=== PATIENT | female | born 1990 | race Caucasian/White ===

== ENCOUNTER 2024-05-18 12:40 | Emergency (ER) | payer OTHER ==
[~2024-05-18] VITALS: Ht 165.1 cm; Wt 67.1 kg
[2024-05-18] MEDS ORDERED: CITALOPRAM20 MG PO (12:58)
[2024-05-18] MEDS ORDERED: GOOD SENSE ASPI81 M1 PO (12:59)
[2024-05-18] MEDS ORDERED: Tdap Vaccine 0.5 ML SYR (Adult Vaccine) IM ONE (14:55)
== END 2024-05-18 16:07 | disposition short-term general hospital (02) ==
LOC: ED 12:40
DX: S01.81XA Laceration without foreign body of other part of head, initial encounter (principal); S09.8XXA Other specified injuries of head, initial encounter; J45.909 Unspecified asthma, uncomplicated; Y08.89XA Assault by other specified means, initial encounter; Y93.89 Activity, other specified; Y92.89 Other specified places as the place of occurrence of the external cause; Y99.8 Other external cause status

== ENCOUNTER 2025-08-04 13:42 | Emergency (ER) | payer OTHER ==
[~2025-08-04] VITALS: Wt 68.0 kg
[~2025-08-04 13:42] MED LIST: CITALOPRAM20 MG PO; GOOD SENSE ASPI81 M1 PO
== END 2025-08-04 15:20 | disposition home or self-care (01) ==
LOC: ED 13:42
DX: R51.9 Headache, unspecified (principal); J45.909 Unspecified asthma, uncomplicated; V89.2XXA Person injured in unspecified motor-vehicle accident, traffic, initial encounter; Y93.89 Activity, other specified; Y92.410 Unspecified street and highway as the place of occurrence of the external cause; Y99.8 Other external cause status